=== PATIENT | female | born 1960 | race Caucasian/White ===

== ENCOUNTER 2018-01-13 12:04 | Observation (INO) | payer OTHER ==
[~2018-01-13] VITALS: Ht 177.8 cm; Wt 13.3 kg
[~2018-01-13 12:04] MED LIST: ACIPHEX20 MG PO; ASPIRIN81 M1 PO; ATIVAN; BENTYL20 MG PO; CLONIDINE HCL0.1 MG PO; DEPO-PROVERA; DEXILANT60 MG PO; EDARBYCLOR PO; LEVOTHYROXINE75 MCG PO; LORAZEPAM PO; LOSARTAN-HCTZ1 EACH PO; NORCO 7.5-3251 EACH PO; PANTOPRAZOLE SO40 MG PO; PRILOSEC OTC20 MG PO; SINGULAIR10 MG PO; VITAMIN D-32000 UNIT PO
[2018-01-13] MEDS ORDERED: DILTIAZEM HCL 100 ML IV STA (12:17)
[2018-01-13] MEDS ORDERED: DILTIAZEM HCL 5 MG/ML 5 ML VIAL IV STA ×2 (12:17→13:35)
[2018-01-13 12:28] LABS: BASOPHILS # (AUTO) 0.1 (0.0-0.1); BASOPHILS % 0.7 % (0.0-1.0); EOSINOPHILS # (AUTO) 0.2 (0.0-0.4); EOSINOPHILS % 2.6 % (0.0-6.0); HEMATOCRIT 43.4 % (34.2-44.1); HEMOGLOBIN 14.6 g/dL (12.0-16.0); LYMPHOCYTES # (AUTO) 2.1 (1.0-3.2); LYMPHOCYTES % 24.4 % (18.0-39.1); MEAN CORPUSCULAR HEMOGLOBIN 30.9 pg (28-32); MEAN CORPUSCULAR HGB CONC 33.6 g/dL (31-35); MEAN CORPUSCULAR VOLUME 91.8 fL (81-99); MONOCYTES % 12.2 % (4.4-11.3); NEUTROPHILS # (AUTO) 5.1 (2.1-6.9); NEUTROPHILS % 59.6 % (38.7-80.0); PLATELET COUNT 256 x10e3/uL (140-360); RED BLOOD COUNT 4.73 x10e6/uL (3.6-5.1); RED CELL DISTRIBUTION WIDTH 12.1 % (11.7-14.4)
[2018-01-13] MEDS ORDERED: SODIUM CHLORIDE 0.9% 250ML 250 ML ONE (12:28)
[2018-01-13] MEDS ORDERED: SODIUM CHLORIDE 0.9% 500ML 500 ML IV ONE (12:30)
[2018-01-13 12:33] LABS: INR 0.9; PROTHROMBIN TIME 11.4 seconds (11.9-14.5)
[2018-01-13 12:34] LABS: PARTIAL THROMBOPLASTIN TIME 32.4 seconds (23.8-35.5)
[2018-01-13 12:40] LABS: ALANINE AMINOTRANSFERASE 18 IU/L (0-55); ALBUMIN 3.6 g/dL (3.5-5.0); ALBUMIN/GLOBULIN RATIO 0.9 (0.8-2.0); ALKALINE PHOSPHATASE 101 IU/L (40-150); ANION GAP 12.8 mmol/L (8-16); BLOOD UREA NITROGEN 15 mg/dL (7-26); BUN/CREATININE RATIO 16 (6-25); CALCIUM 9.8 mg/dL (8.4-10.2); CARBON DIOXIDE 28 mmol/L (22-29); CHLORIDE 105 mmol/L (98-107); CREATINE KINASE 78 IU/L (29-168); CREATININE, SERUM 0.92 mg/dL (0.57-1.11); EST GLOMERULAR FILTRATION RATE > 60 ML/MIN (60-); GLUCOSE 99 mg/dL (74-118); POTASSIUM 3.8 mmol/L (3.5-5.1); SODIUM 142 mmol/L (136-145)
[2018-01-13] MEDS ORDERED: DILTIAZEM HCL IV SOLN 125 MG in SODIUM CHLORIDE 0.9% 100 ML IV SCH (12:45)
[2018-01-13 13:00] LABS: THYROID STIMULATING HORMONE 0.228 uIU/mL (0.350-4.940)
[2018-01-13] MEDS ORDERED: GABAPENTIN300 MG PO (13:10)
[2018-01-13] MEDS ORDERED: ATORVASTATIN CA10 MG PO (13:10)
[2018-01-13] MEDS ORDERED: METOPROLOL SUCC25 MG PO (13:10)
[2018-01-13] MEDS ORDERED: LEXAPRO10 MG PO (13:10)
[2018-01-13] MEDS ORDERED: ENOXAPARIN SODIUM INJ 100 MG/ML SYR SC STA (13:21)
[2018-01-13] MEDS ORDERED: SODIUM CHLORIDE FLUSH 10 ML SYR INJ PRN (13:30)
[2018-01-13] MEDS: DILTIAZEM HCL 30 MG TAB PO SCH ×2 (13:34→16:30)
--- NOTE | 2018-01-13 13:34 | Diagnostic Imaging Report ---
PROCEDURE: A single AP view of the chest. COMPARISON: Patients [facility], CT, CT ABDOMEN/PELVIS W, 09/17/2012, 4:35. INDICATIONS: ELEVATED HEART RATE. WEAKNESS FINDINGS: Lines/tubes: None. Lungs: The lungs are well inflated and clear. There is no evidence of pneumonia or pulmonary edema. Pleura: There is no pleural effusion or pneumothorax. Heart and mediastinum: The heart and the mediastinum are unremarkable. Bones: No acute bony abnormality. IMPRESSION: 1. No acute cardiopulmonary abnormalities. Haroon Seymour M.D. Dictated by: Haroon Seymour M.D. on 01/13/2018 at 13:36 Electronically approved by: Haroon Seymour M.D. on 01/13/2018 at 13:36
--- OUTSIDE RECORDS SUMMARY | 2018-01-13 14:31 | XMS REPORT ---
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 Allergies, Adverse Reactions, Alerts This patient has no known allergies or adverse reactions. Medications This patient has no known medications. Results Test Description Test Time Test Comments Text Results Atomic Results Result Comments CHEST SINGLE (PORTABLE) [place] [address] Patient Name: JENIFFER LECHUGA MR #: [id number] : 1960 Age/Sex: 57/F Req #: [id number] Adm Physician: Ordered by: OMAIRA QUILES MD Report #: [id number] Location: ER Room/Bed: Procedure: [id number] DX/CHEST SINGLE (PORTABLE) Exam Date: 01/13/18 Exam Time: 1230 REPORT STATUS: Signed PROCEDURE: A single AP view of the chest. COMPARISON: [facility], CT, CT ABDOMEN/PELVIS W, 09/17/2012, 4:35. INDICATIONS: ELEVATED HEART RATE. WEAKNESS FINDINGS: Lines/tubes: None. Lungs: The lungs are well inflated and clear. There is no evidence of pneumonia or pulmonary edema. Pleura: There is no pleural effusion or pneumothorax. Heart and mediastinum: The heart and the mediastinum are unremarkable. Bones: No acute bony abnormality. IMPRESSION: 1. No acute cardiopulmonary abnormalities. Angela Perez M.D. Dictated by : Angela Perez M.D. on 01/13/2018 at 13:36 Electronically approved by: Angela Perez M.D. on 01/13/2018 at 13:36 Dictated By : ANGELA PEREZ MD [id number] Transcribed By: EZRA on 01/13/18 1336 COPY TO: OMAIRA QUILES MD
[2018-01-13 15:00] VITALS: BP 104/64
[2018-01-13 16:08] LABS: FREE THYROXINE INDEX 2.7864 (1.4-3.8)
--- NOTE | 2018-01-13 16:24 | History and Physical ---
CHIEF COMPLAINT: The patient comes in with a rapid heart rate and palpitations. HISTORY OF PRESENTING ILLNESS: This is Ms. Juan Nava, a 57-year-old lady with a history of low back pain, hypothyroidism, anxiety, was in her usual state of health until a night before the admission the patient started to have some palpitation and was also having a small amount of heartburn and dull headache, and the patient presented to the primary care office and the patient was found to have AFib with rapid ventricular response. PAST MEDICAL HISTORY: History of hypertension, history of asthma, history of hypothyroidism, history of anxiety, history of lumbar disease, diskopathy and history of reflux esophagitis. MEDICINES SHE TAKES AT HOME 1. Levothyroxine 150. 2. Losartan and hydrochlorothiazide 50 with 12.5. 3. Atorvastatin 10 mg. 4. Lexapro 10 mg. 5. Gabapentin 300 mg 3 capsules orally once a day. 6. Dexilant 60 mg once a day. 7. Montelukast 10 mg. 8. Aspirin 81 mg. 9. Metoprolol ER 25 mg once a day. SOCIAL HISTORY: History of smoking in the past. No ETOH. No IV drug abuse right now. REVIEW OF SYSTEMS: Negative for chest pain. Positive for some shortness of breath . No nausea, vomiting, diarrhea. No constipation. No rectal bleeding. No hematochezia, no hematemesis. No diplopia, no blurry vision and no focal deficits on history. PHYSICAL EXAMINATION VITAL SIGNS: Temperature is not noted. Pulse was 84 and climbed up to 132, along the way was given diltiazem, came down to 56. Blood pressure is 116/72. HEENT: Normocephalic, atraumatic. Pupils react to light and accommodation. CARDIOVASCULAR: S1 and S2 normal. Right now the patient is in regular rate and rhythm. ABDOMEN: Nontender, nondistended. EXTREMITIES: No clubbing, no cyanosis, no edema. ASSESSMENT 1. Paroxysmal atrial fibrillation. 2. Hypothyroidism. 3. Hypertension. 4. Atrial fibrillation with rapid ventricular response. PLAN: The patient will get an echocardiogram. Cardiac consult has been done. Will start the patient on Xarelto 15 mg twice a day and will possibly send the patient tomorrow home. Thyroid medication has been reduced to 150 mcg. Patient's laboratory values were essentially normal except for the hyperthyroid overcorrection that was seen. TSH was 0.08. BNP was 273. We are going to order an echocardiogram. Further recommendations on clinical course. For further information, look in the chart. Job#: [id number]
[2018-01-13 16:44] VITALS: BP 104/64
[2018-01-13] MEDS ORDERED: RIVAROXABAN 20 MG TABLET PO SCH (17:00)
[2018-01-13] MEDS: HYDROCODONE/APAP 7.5MG-325MG 1 EA TAB PO SCH ×2 (18:00→20:35)
[2018-01-13 20:00] VITALS: BP 110/68
[2018-01-13] MEDS ORDERED: ASPIRIN 81 MG CHEW TAB PO SCH (21:00)
[2018-01-13] MEDS ORDERED: LORAZEPAM 1 MG TAB PO SCH (21:00)
[2018-01-13] MEDS ORDERED: NON-FORMULARY MEDICATION (Aspirin 81 MG) PO SCH (21:00)
[2018-01-13] MEDS ORDERED: ATORVASTATIN 10 MG TAB PO SCH (21:00)
[2018-01-13 21:47] LABS: CREATINE KINASE 55 IU/L (29-168)
[2018-01-14] VITALS: BP 111/73
[2018-01-14] MEDS: HYDROCODONE/APAP 7.5MG-325MG 1 EA TAB PO SCH ×3 (01:49→09:24)
[2018-01-14 04:00] VITALS: BP 101/60
[2018-01-14] MEDS ORDERED: LEVOTHYROXINE SODIUM 125 MCG TAB PO SCH (06:00)
[2018-01-14 08:05] VITALS: BP 104/57
[2018-01-14 08:08] LABS: CREATINE KINASE 45 IU/L (29-168)
[2018-01-14] MEDS ORDERED: METOPROLOL SUCCINATE 25 MG TAB XL PO SCH ×3 (09:00→10:00)
[2018-01-14] MEDS ORDERED: ESCITALOPRAM OXALATE 10 MG TAB PO SCH (09:00)
[2018-01-14] MEDS ORDERED: MONTELUKAST SODIUM 10 MG TAB PO SCH (09:00)
[2018-01-14] MEDS ORDERED: GABAPENTIN 300 MG CAP PO SCH (09:00)
[2018-01-14] MEDS ORDERED: PANTOPRAZOLE SOD 40 MG TABEC PO SCH (09:00)
[2018-01-14] MEDS ORDERED: LEVOTHYROXINE SODIUM 75 MCG TAB PO SCH ×2 (09:00)
[2018-01-14 09:47] VITALS: BP 104/57
[2018-01-15] MEDS ORDERED: METOPROLOL SUCCINATE 25 MG TAB XL PO SCH (09:00)
== END 2018-01-14 10:33 | disposition home or self-care (01) ==
LOC: ER 12:04 → IMCU 14:28
PROVIDERS: ADMIT Family Medicine; ATTEND Family Medicine
DX: I48.0 Paroxysmal atrial fibrillation (principal); I10 Essential (primary) hypertension; E03.9 Hypothyroidism, unspecified; K21.9 Gastro-esophageal reflux disease without esophagitis; F41.9 Anxiety disorder, unspecified; Z79.84 Long term (current) use of oral hypoglycemic drugs; M54.5 Low back pain
CPT/HCPCS: 36415 ×2; 71045; 80053; 82550 ×2; 82553 ×2; 83880; 84436; 84443; 84479; 84484 ×2; 85025; 85379; 85610; 85730; 93005; 93306; 99284; G0378 ×2; J1650; J7050 ×3

== ENCOUNTER → 2019-02-22 | Day surgery (SDC) | payer OTHER ==
[~2019-02-22] MED LIST changes: +ATORVASTATIN CA10 MG PO; +ATORVASTATIN PO; +DEXILANT PO; +ESCITALOPRAM PO; +FENTANYL CITRATE/PF 100MCG/2 ML INJ ONE; +GABAPENTIN PO; +GABAPENTIN300 MG PO; +GLUCAGON FOR INJ 1 MG VIAL ONE; +LEVOTHYROXINE PO; +LEXAPRO10 MG PO; +LIDOCAINE HCL 2% LOCAL INJ 5 ML SDV VIAL INJ ONE; +LOSARTAN PO; +MELATONIN PO; +METOPROLOL PO; +METOPROLOL SUCC25 MG PO; +METOPROLOL TART25 MG PO; +MIDAZOLAM HCL 2 MG/2 ML VIAL ONE; +MONTELUKAST PO; +PROPOFOL IV EMULSION 10 MG/ML 50 ML VIAL ONE; +VITAMIN D PO; +XARELTO PO
--- OUTSIDE RECORDS SUMMARY | 2019-02-22 05:56 | XMS REPORT | Continuity of Care Document ---
Author Author [facility] Interface Address Unknown Phone Unavailable Problems Problem Status Onset Date Classification Date Reported Comments Source Encounter for screening mammogram for malignant neoplasm of breast 04/04/2018 10/15/2018 SHERON Ferrari M54.16 - "RADICULOPATHY, LUMBAR REGION" Active 08/24/2016 [facility] [place] Obstructed internal hernia Active 07/12/2015 Problem 01/14/2018 [facility] SBO Active 07/12/2015 Problem 01/14/2018 [facility] SBO Active 07/24/2014 [facility] Acute asthma Resolved Problem 10/15/2018 SHERON Ferrari,[facility] Adult hypothyroidism Resolved Problem 10/15/2018 SHERON Ferrari,[facility] GERD (<span ID="[id number]</span>) Resolved Problem 10/15/2018 SHERON Ferrari,[facility] HTN (<span ID="[id number]">Confirmed</span>) Resolved Problem 10/15/2018 SHERON Ferrari,[facility] Obesity Active Problem 10/15/2018 SHERON Ferrari INTESTINAL OBSTRUCT NOS Active [facility] Medications Medication Details Route Status Patient Instructions Ordering Provider Order Date Source Dicyclomine Hcl (Bentyl) 20 Mg Tablet, 20 Mg Oral Daily Active 07/13/2015 [facility] Omeprazole Magnesium (Prilosec Otc) 20 Mg Tablet., 1 Each Oral Daily Active 07/13/2015 [facility] Pantoprazole Sodium (Protonix) 40 Mg Tablet., 40 Mg Oral Daily Active 07/13/2015 [facility] Dexilant 60 mg, Route: PO, Drug form: DRC, Daily, Dosing Weight 90.909, kg, Start date: 07/26/14 9:00:00, Duration: 30 day, Stop date: 08/24/14 9:00:00 No Longer Active 07/26/2014 [facility] aspirin 81 mg, 1 tab, Route: PO, Drug form: CHEWTAB, Daily, Dosing Weight 90.909, kg, Start date: 07/26/14 9:00:00, Duration: 30 day, Stop date: 08/24/14 9:00:00Notes: Take with food. No Longer Active 07/26/2014 [facility] Singulair 10 mg, 1 tab, Route: PO, Drug form: TAB, Bedtime, Dosing Weight 90.909, kg, Start date: 07/25/14 21:00:00, Duration: 30 day, Stop date: 08/23/14 21:00:00Notes: (Same as:Singulair) Inactive 07/26/2014 [facility] Protonix 40 mg, 1 tab, Route: PO, Drug form: ECTAB, Before Dinner, Start date: 07/25/14 16:30:00, Duration: 30 day, Stop date: 08/23/14 16:30:00Notes: Tablet should not be chewed or crushed. (Same as: Protonix) Inactive 07/25/2014 [facility] Alprazolam 1 MG Oral Tablet [Xanax] 1 mg, 1 tab, Route: PO, Drug form: TAB, TID, Dosing Weight 90.909, kg, PRN as needed for anxiety, Start date: 07/25/14 11:09:00, Stop date: 08/24/14 11:08:00Notes: With food or milk (Same as: Xanax) Inactive 07/25/2014 [facility] pneumococcal capsular polysaccharide type 1 vaccine / pneumococcal capsular polysaccharide type 10A vaccine / pneumococcal capsular polysaccharide type 11A vaccine / pneumococcal capsular polysaccharide type 12F vaccine / pneumococcal capsular polysacchar 0.5 ml, Route: IM, Drug Form: INJ, Daily, Start date: 07/25/14 9:00:00, Duration: 1 doses or times, Stop date: 07/25/14 9:00:00Notes: (Same as: Pneumovax 23) Refrigerate Inactive 07/25/2014 [facility] Influenza Virus Vaccine, Inactivated Z-Wufyvswx-54 (H3N2)-like virus ([id number] [facility] [place]175[place] strain / Influenza Virus Vaccine, Inactivated G-[id number], IVR-148 (H1N1) strain / Influenza Virus Vaccine, Inactivated, D-Ltizgzj-6-lik 0.5 ml, Route: IM, Drug Form: SUSP, Daily, Start date: 07/25/14 9:00:00, Duration: 1 doses or times, Stop date: 07/25/14 9:00:00Notes: (Same as: Fluzone Quadrivalent) Inactive 07/25/2014 [facility] Losartan 50 mg, 1 tab, Route: PO, Drug form: TAB, Daily, Dosing Weight 90.909, kg, Start date: 07/25/14 9:00:00, Duration: 30 day, Stop date: 08/23/14 9:00:00Notes: (Same as: Cozaar) Inactive 07/25/2014 [facility] Thyroxine 0.15 mg, 1 tab, Route: PO, Drug form: TAB, [id number], Dosing Weight 90.909, kg, Start date: 07/25/14 6:30:00, Duration: 30 day, Stop date: 08/23/14 6:30:00Notes: Take 1 hour before or 2 hours after meal; Enteral feeds may interefere with the absorption of this medication. (Same as: Levothroid) Inactive 07/25/2014 [facility] Atropine 0.5 mg, 5 mL, Route: IV, Drug form: INJ, ONCE, Dosing Weight 90.909, kg, PRN Bradycardia, Start date: 07/24/14 20:21:00, symptomatic bradycardia with heart rate No Longer Active 07/25/2014 [facility] Nitroglycerin 0.4 MG Sublingual Tablet 0.4 mg, 1 tab, Route: SL, Drug form: TAB, Q5Min, Dosing Weight 90.909, kg, PRN Chest Pain, Start date: 07/24/14 20:21:00, Duration: 30 day, Stop date: 08/23/14 20:20:00Notes: (Same as:Nitroquick, Nitrostat) "Do Not Crush" Sublingual tablet No Longer Active 07/25/2014 [facility] Cipro 500 mg, 10 mL, Route: NG, Drug form: SUSP, [id number], Dosing Weight 90.909, kg, Start date: 07/24/14 17:00:00, Duration: 30 day, Stop date: 08/23/14 5:00:00Notes: Shake well - Take 1hr before or 2hr after antacids, dairy & minerals - On empty stomach - May interfere w/enteral feedings. No Longer Active 07/24/2014 [facility] Flagyl 500 mg, 100 mL, Route: IVPB, Drug form: INJ, [id number], Dosing Weight 90.909, kg, Start date: 07/24/14 17:00:00, Duration: 30 day, Stop date: 08/23/14 9:00:00Notes: (Same as: Flagyl) Avoid alcohol. No Longer Active 07/24/2014 [facility] normal saline 0.9% IV 1,000 mL 1,000 mL, Rate: 75 ml/hr, Infuse over: 13.3 hr, Route: IV, Dosing Weight 90.909 kg, Total Volume: 1,000, Start date: 07/24/14 16:34:00, Duration: 30 day, Stop date: 08/23/14 16:33:00 No Longer Active 07/24/2014 [facility] montelukast 10 MG Oral Tablet [Singulair] 10 mg=1 tab, PO, Bedtime, # 30 tab, 0 Refill(s) On Hold 07/24/2014 [facility] losartan 50 mg oral tablet 50 mg=1 tab, PO, Daily, # 30 tab, 0 Refill(s) On Hold 07/24/2014 [facility] dexlansoprazole 60 MG Enteric Coated Capsule [Dexilant] 60 mg=1 cap, Daily, 0 Refill(s) On Hold 07/24/2014 [facility] dicyclomine 20 mg oral tablet 20 mg=1 tab, PO, QID, # 28 tab, 0 Refill(s) On Hold 07/24/2014 [facility] Alprazolam 1 MG Oral Tablet [Xanax] 1 mg=1 tab, PO, TID, Anxiety, 0 Refill(s) On Hold 07/24/2014 [facility] aspirin 81 mg, Daily, 0 Refill(s) On Hold 07/24/2014 [facility] Thyroxine 0.15 mg, PO, Daily, 0 Refill(s) On Hold 07/24/2014 [facility] Ativan , Bedtime Active 09/17/2012 [facility] Clonidine Hcl 0.1 Mg Tablet, 0.1 Mg Oral Bedtime Active 09/17/2012 [facility] Depo-Provera , Active 09/17/2012 [facility] Edarbyclor , 25 Mg Oral Daily Active 09/17/2012 [facility] Rabeprazole Sodium (Aciphex) 20 Mg Tablet.dr, 20 Mg Oral Daily Active 09/17/2012 [facility] Depo-Provera , Active 09/08/2012 [facility] Aspirin 81 Mg Tablet Bedtime Active [facility] Atorvastatin Calcium 10 Mg Tablet Today At 9:00PM Active [facility] Cholecalciferol (Vitamin D3) (Vitamin D-3) 2,000 Unit Capsule Bedtime Active [facility] Dexlansoprazole (Dexilant) 60 Mg Cap. Daily Active THERAPEUTIC INTERCHANGE WITH PROTONIX PER [facility] Escitalopram Oxalate (Lexapro) 10 Mg Tablet Daily Active [facility] Gabapentin 300 Mg Capsule Daily Active [facility] Hydrocodone Bit/Acetaminophen ([place]ield 7.5-325 Tablet) 1 Each Tablet Every 4 Hours Active [facility] Levothyroxine Sodium 75 Mcg Tablet Daily Active [facility] Lorazepam Bedtime Active [facility] Losartan/Hydrochlorothiazide (Losartan-Hctz 50-12.5 Mg Tab) 1 Each Tablet Daily Active [facility] Metoprolol Succinate 25 Mg Tab.er.24h Daily Active [facility] Montelukast Sodium (Singulair) 10 Mg Tablet Daily Active [facility] Allergies, Adverse Reactions, Alerts Substance Category Reaction Severity Reaction type Status Date Reported Comments Source Methylprednisolone THROAT CLOSES UP AND HIVES Severe Allergy to Substance Active 07/13/2015 [facility] Depo-Medrol Assertion Drug allergy Active [facility]ER[facility] Immunizations Immunization Date Given Site Status Last Updated Comments Source pneumococcal 23-valent vaccine 07/25/2014 Right deltoid completed Eugenio [facility] [place] influenza virus vaccine, inactivated 07/25/2014 Left deltoid completed Eugenio [facility] [place] Results Order Name Results Value Reference Range Date Interpretation Comments Source Breast Mammo Scrn ALLAN incl CAD MA Breast Mammo Scrn ALLAN incl CAD MA BILATERAL DIGITAL SCREENING MAMMOGRAM WITH CAD: 03/28/2018 CLINICAL: Routine/Screening. Current study was evaluated with a Computer Aided Detection (CAD) system. COMPARISON:Comparison is made to exams dated: 09/01/2012 mammogram, 07/02/2011 mammogram, 06/17/2011 mammogram, and 07/26/2008 mammogram - [facility]. TECHNIQUE: Mammographic views were obtained using digital acquisition. Current study was also evaluated with a Computer Aided Detection (CAD) system. FINDINGS: There are scattered fibroglandular densities in both breasts. No significant masses, calcifications, or other findings are seen in either breast. There has been no significant interval change. IMPRESSION: NEGATIVE RECOMMENDATION:There is no mammographic evidence of malignancy. A 1 year screening mammogram is recommended.(03/29/2019) This exam was interpreted at [id number] at [facility] [place]. Professional services are provided by the [facility]. Shira Limon M.D. sm/penrad:03/28/2018 15:55:37 Track Laminating Machine Tender(s): Helen Veliz RT(R)(M), [facility] letter sent: BI-RADS 1/2 Mammogram BI-RADS: 1 Negative 03/28/2018 - - Read by: Shira Limon MD Dictated Date/time: 03/28/18 15:55 Electronically Signed by: Shira Limon MD 03/28/18 15:55 FINAL REPORT [facility]ER[facility] Serum or plasma creatine kinase MB measurement (mass/volume) Serum or plasma creatine kinase MB measurement (mass/volume) 0.80 0 - 5.0 01/14/2018 [facility] Serum or plasma creatine kinase measurement (enzymatic activity/volume) Serum or plasma creatine kinase measurement (enzymatic activity/volume) 45 29 - 168 01/14/2018 [facility] Troponin I measurement by highly sensitive enzyme immunoassay Troponin I measurement by highly sensitive enzyme immunoassay null 0 - 0.300 01/14/2018 [facility] Activated partial thromboplastin time (aPTT) in platelet poor plasma bycoagulation assay Activated partial thromboplastin time (aPTT) in platelet poor plasma bycoagulation assay 32.4 23.8 - 35.5 01/13/2018 [facility] Automated blood basophil count (count/volume) Automated blood basophil count (count/volume) 0.1 0.0 - 0.1 01/13/2018 [facility] Automated blood basophil count as percentage of total leukocytes Automated blood basophil count as percentage of total leukocytes 0.7 0.0 - 1.0 01/13/2018 [facility] Automated blood eosinophil count Automated blood eosinophil count 0.2 0.0 - 0.4 01/13/2018 [facility] Automated blood eosinophil count as percentage of total leukocytes Automated blood eosinophil count as percentage of total leukocytes 2.6 0.0 - 6.0 01/13/2018 [facility] Automated blood hematocrit (volume fraction) Automated blood hematocrit (volume fraction) 43.4 34.2 - 44.1 01/13/2018 [facility] Automated blood lymphocyte count as percentage ot total leukocytes Automated blood lymphocyte count as percentage ot total leukocytes 24.4 18.0 - 39.1 01/13/2018 [facility] Automated blood monocyte count as percentage of total leukocytes Automated blood monocyte count as percentage of total leukocytes 12.2 4.4 - 11.3 01/13/2018 [facility] Automated blood neutrophil count Automated blood neutrophil count 5.1 2.1 - 6.9 01/13/2018 [facility] Automated blood platelet count (count/volume) Automated blood platelet count (count/volume) 256 140 - 360 01/13/2018 [facility] Automated blood segmented neutrophil count as percentage of total leukocytes Automated blood segmented neutrophil count as percentage of total leukocytes 59.6 38.7 - 80.0 01/13/2018 [facility] Automated erythrocyte mean corpuscular hemoglobin (mass per erythrocyte) Automated erythrocyte mean corpuscular hemoglobin (mass per erythrocyte) 30.9 28 - 32 01/13/2018 [facility] Automated erythrocyte mean corpuscular hemoglobin concentration measurement (mass/volume) Automated erythrocyte mean corpuscular hemoglobin concentration measurement (mass/volume) 33.6 31 - 35 01/13/2018 [facility] Automated erythrocyte mean corpuscular volume Automated erythrocyte mean corpuscular volume 91.8 81 - 99 01/13/2018 [facility] Blood erythrocytes automated count (number/volume) Blood erythrocytes automated count (number/volume) 4.73 3.6 - 5.1 01/13/2018 [facility] Blood hemoglobin measurement (moles/volume) Blood hemoglobin measurement (moles/volume) 14.6 12.0 - 16.0 01/13/2018 [facility] Blood leukocytes automated count (number/volume) Blood leukocytes automated count (number/volume) 8.55 4.8 - 10.8 01/13/2018 [facility] Blood lymphocytes count (number/volume) Blood lymphocytes count (number/volume) 2.1 1.0 - 3.2 01/13/2018 [facility] Blood monocytes automated count (number/volume) Blood monocytes automated count (number/volume) 1.0 0.2 - 0.8 01/13/2018 [facility] Estimated glomerular filtration rate (GFR) determination Estimated glomerular filtration rate (GFR) determination null 60 01/13/2018 [facility] Fibrin D-dimer DDU measurement in platelet poor plasma (mass/volume) Fibrin D-dimer DDU measurement in platelet poor plasma (mass/volume) 0.49 0.00 - 0.45 01/13/2018 [facility] Free thyroxine index Free thyroxine index 2.7864 1.4 - 3.8 01/13/2018 [facility] Glucose measurement Glucose measurement 99 74 - 118 01/13/2018 [facility] INR in Platelet poor plasma by Coagulation assay INR in Platelet poor plasma by Coagulation assay 0.90 01/13/2018 [facility] Plasma globulin measurement (mass/volume) Plasma globulin measurement (mass/volume) 3.9 2.3 - 3.5 01/13/2018 [facility] Prothrombin time (PT) in platelet poor plasma by coagulation assay Prothrombin time (PT) in platelet poor plasma by coagulation assay 11.4 11.9 - 14.5 01/13/2018 [facility] Serum or plasma alanine aminotransferase measurement (enzymatic activity/volume) Serum or plasma alanine aminotransferase measurement (enzymatic activity/volume) 18 0 - 55 01/13/2018 [facility] Serum or plasma albumin measurement (mass/volume) Serum or plasma albumin measurement (mass/volume) 3.6 3.5 - 5.0 01/13/2018 [facility] Serum or plasma albumin/globulin mass ratio Serum or plasma albumin/globulin mass ratio 0.9 0.8 - 2.0 01/13/2018 [facility] Serum or plasma alkaline phosphatase measurement (enzymatic activity/volume) Serum or plasma alkaline phosphatase measurement (enzymatic activity/volume) 101 40 - 150 01/13/2018 [facility] Serum or plasma anion gap Serum or plasma anion gap 12.8 8 - 16 01/13/2018 [facility] Serum or plasma calcium measurement (mass/volume) Serum or plasma calcium measurement (mass/volume) 9.8 8.4 - 10.2 01/13/2018 [facility] Serum or plasma carbon dioxide, total measurement (moles/volume) Serum or plasma carbon dioxide, total measurement (moles/volume) 28 22 - 29 01/13/2018 [facility] Serum or plasma chloride measurement (moles/volume) Serum or plasma chloride measurement (moles/volume) 105 98 - 107 01/13/2018 [facility] Serum or plasma creatinine measurement (mass/volume) Serum or plasma creatinine measurement (mass/volume) 0.92 0.57 - 1.11 01/13/2018 [facility] Serum or plasma potassium measurement (moles/volume) Serum or plasma potassium measurement (moles/volume) 3.8 3.5 - 5.1 01/13/2018 [facility] Serum or plasma protein measurement (mass/volume) Serum or plasma protein measurement (mass/volume) 7.5 6.5 - 8.1 01/13/2018 [facility] Serum or plasma sodium measurement (moles/volume) Serum or plasma sodium measurement (moles/volume) 142 136 - 145 01/13/2018 [facility] Serum or plasma thyrotropin measurement by detection limit <=0.005 miu/l (units/volume) Serum or plasma thyrotropin measurement by detection limit <=0.005 miu/l (units/volume) 0.228 0.350 - 4.940 01/13/2018 [facility] Serum or plasma thyroxine (T4) measurement (mass/volume) Serum or plasma thyroxine (T4) measurement (mass/volume) 11.04 4.5 - 10.9 01/13/2018 [facility] Serum or plasma total bilirubin measurement (mass/volume) Serum or plasma total bilirubin measurement (mass/volume) 0.3 0.2 - 1.2 01/13/2018 [facility] Serum or plasma triiodothyronine resin uptake (T3RU) Serum or plasma triiodothyronine resin uptake (T3RU) 25.24 22.5 - 37.0 01/13/2018 [facility] Serum or plasma urea nitrogen measurement (mass/volume) Serum or plasma urea nitrogen measurement (mass/volume) 15 7 - 26 01/13/2018 [facility] Serum or plasma urea nitrogen/creatinine mass ratio Serum or plasma urea nitrogen/creatinine mass ratio 16 6 - 25 01/13/2018 [facility] Red Cell Distribution Width 12.1 11.7 - 14.4 01/13/2018 [facility] IM GRANULOCYTES % 0.5 0.0 - 1.0 01/13/2018 [facility] Absolute Immature Granulocyte (auto 0.04 0 - 0.1 01/13/2018 [facility] Aspartate Amino Transf (AST/SGOT) 14 5 - 34 01/13/2018 [facility] B-Type Natriuretic Peptide 273.1 0 - 100 01/13/2018 [facility] Spine lumbar w/wo contrast MRI Spine lumbar w/wo contrast MRI MRI LUMBAR SPINE WITHOUT AND WITH CONTRAST TECHNIQUE: Sagittal T1, sagittal T2 with fat saturation, axial T1 and axial T2 images were obtained. Intravenous gadolinium was given. COMPARISON: No prior exam. FINDINGS: The paravertebral soft tissues are normal. The conus medullaris terminates at the T12-L1 level. Mild levoscoliosis of the lumbar spine is present. Congenital shortened lumbar pedicles are seen. L2-L5 laminectomies are seen. No pseudomeningocele or arachnoiditis is identified. T12-L1: Unremarkable. L1-L2: Unremarkable. L2-L3: 4.7 mm disc bulge is present with moderate central canal stenosis. Mild bilateral foraminal stenosis is present due to disc bulge encroachment with mild mass effect on the left L2 exiting nerve root. L3-L4: 3.5 mm grade 1 retrolisthesis with 5.6 mm posterior disc osteophyte complex, with mild central canal stenosis. The lateral recesses are stenotic. Severe bilateral foraminal stenosis is present due to disc osteophyte complex encroachment. Prominent right foraminal and extraforaminal disc osteophyte complex is present. Mild L3 and L4 marrow edema is present with mild enhancement. Mild enhancement of the disc is also present. No paraspinal or epidural cellulitis or fluid collection is seen. L4-L5: Moderate bilateral foraminal stenosis due to disc osteophyte complex encroachment. No central canal stenosis due to the laminectomy. L5-S1: 2.8 mm disc bulge. Severe left foraminal stenosis due to foraminal and extraforaminal osteophytes. No thecal sac stenosis. IMPRESSION: 1. Multilevel disc degenerative disease and spondylosis. Congenital short lumbar pedicles. 2. L2-L5 laminectomies. No pseudomeningocele or arachnoiditis. 3. L2-L3 moderate central canal stenosis. 4. L3-L4 significant degenerative changes with severe bilateral foraminal stenosis and mild central canal stenosis. L3 and L4 marrow edema likely reactive Modic type I marrow change rather than osteomyelitis and discitis. No cellulitis. Clinical correlation recommended. 5. L4-L5 moderate bilateral foraminal stenosis. L5-S1 severe left foraminal stenosis. 09/13/2016 - - Read by: Geovanny Olivas MD Dictated Date/time: 09/13/16 16:41 Electronically Signed by: Geovanny Olivas MD 09/13/16 17:16 FINAL REPORT [facility] Spine cervical wo contrast MRI Spine cervical wo contrast MRI EXAM: MRI CERVICAL SPINE WITHOUT CONTRAST DATE: 09/13/2016 2:37 PM TEST ENGINEERING INTERN TECHNIQUE: Multiplanar, multisequence MRI cervical spine without IV contrast COMPARISON: Unavailable FINDINGS: Cervical vertebral bodies have normal height, shape and alignment. The lordosis is straightened. No worrisome marrow signal abnormality is identified. Cerebellar tonsils are above foramen magnum. Cervical cord signal is normal and homogenous. Paravertebral soft tissues are within normal limits. Disc levels, spinal canal, neural foramina: Craniocervical junction: No stenosis C1-C2: No subluxation, ligamentous pannus formation, or stenosis C2-C3: Intervertebral disc height and signal are maintained. Posterior elements are normal.There is no stenosis. C3-C4: Intervertebral disc height and signal are maintained. Right facets are mildly enlarged. Central canal measures 14 mm. Neural foramina are patent.. C4-C5: Intervertebral discs dehydrated without height loss. There is a small right foraminal zone osteophyte complex. There is right greater than left facet hypertrophy. Central canal measures 14 mm. Neural foramina are patent. C5-C6: Loss of intervertebral disc height with circumferential disc osteophyte complex and radial annular fissuring. There is mild facet and uncinate hypertrophy. Central canal measures 9 mm, and there is slight flattening of the ventral cord surface. There is no cord signal abnormality. There is moderate narrowing of the right neural foramen. C6-C7: Loss of intervertebral disc height and signal with circumferential disc osteophyte complex. There is left greater than right facet and uncinate hypertrophy. Central canal measures 8 mm, and is slight flattening the ventral cord surface, but there is no cord signal abnormality. There is [id number]-[id number] narrowing of the left neural foramen. C7-T1: Intervertebral disc height and signal are maintained. Facets are mildly enlarged. Central canal measures 10 mm. Neural foramina are patent. IMPRESSION: 1. Mild C5-C6 and C6-C7 spinal stenosis and ventral cord flattening. There is no evidence of compressive myelopathy 2. Moderate right C5-C6 and left C6-C7 neural foramen narrowing. 09/13/2016 - - Read by: Josh Ward MD Dictated Date/time: 09/13/16 16:37 Electronically Signed by: Josh aWrd MD 09/13/16 16:40 FINAL REPORT [facility] CHEM PANEL Glucose Lvl 106 mg/dL 70 - 99 07/25/2014 2Interpretive Data: Adult reference range values reflect the clinical guidelines of the [place] [employer]. [facility] CHEM PANEL Creatinine Lvl 1.0 mg/dL 0.5 - 1.4 07/25/2014 [facility] CHEM PANEL BUN 10 mg/dL 7 - 22 07/25/2014 [facility] CHEM PANEL Potassium Lvl 4.3 meq/L 3.5 - 5.1 07/25/2014 [facility] CHEM PANEL Sodium Lvl 143 meq/L 135 - 145 07/25/2014 [facility] CHEM PANEL CO2 30 meq/L 24 - 32 07/25/2014 [facility] CHEM PANEL Chloride Lvl 109 meq/L 95 - 109 07/25/2014 [facility] CHEM PANEL Calcium Lvl 8.2 mg/dL 8.5 - 10.5 07/25/2014 [facility] CHEM PANEL AGAP 8.3 meq/L 10.0 - 20.0 07/25/2014 [facility] CHEM PANEL eGFR 65 mL/min/1.73m2 07/25/2014 1Result Comment: The eGFR is calculated using the CKD-EPI formula. In most young, healthy individuals the eGFR will be >90 mL/min/1.73m2. The eGFR declines with age. An eGFR of 60-89 may be normal in some populations, particularly the elderly, for whom the CKD-EPI formula has not been extensively validated. Use of the eGFR is not recommended in the following populations: Individuals with unstable creatinine concentrations, including patients and those with serious co-morbid conditions. Patients with extremes in muscle mass or diet. The data above are obtained from the National Kidney Disease Education Program (NKDEP) which additionally recommends that when the eGFR is used in patients with extremes of body mass index for purposes of drug dosing, the eGFR should be multiplied by the estimated BMI. [facility] Abdomen 2 views Abdomen 2 views ABDOMEN 2 VIEWS: The lateral aspects of the abdomen are coned off. There is contrast in the right colon. The gas pattern is normal. There is no evidence of pneumoperitoneum. Surgical clips in the right upper quadrant are noted. Degenerative changes in the lumbar spine are seen without acute osseous abnormalities. IMPRESSION: No acute radiographic abnormality in the abdomen. SL:13 07/25/2014 - - Read by: Richar Ramos MD Dictated Date/time: 07/25/14 07:41 Electronically Signed by: Richar Ramos MD 07/25/14 07:43 FINAL REPORT [facility] CARDIAC ENZYMES Troponin-I null 0.00 - 0.40 07/24/2014 [facility] HEMATOLOGY RDW 13.6 % 11.5 - 14.5 07/24/2014 [facility] HEMATOLOGY MCHC 32.7 g/dL 32.0 - 36.0 07/24/2014 [facility] HEMATOLOGY Hct 36.0 % 36.0 - 48.0 07/24/2014 [facility] HEMATOLOGY Platelet 266 K/CMM 133 - 450 07/24/2014 [facility] MCH 28.5 pg 27.0 - 31.0 07/24/2014 [facility] HEMATOLOGY MCV 87.2 fL 80.0 - 98.0 07/24/2014 [facility] HEMATOLOGY MPV 7.3 fL 7.4 - 10.4 07/24/2014 [facility] HEMATOLOGY Hgb 11.8 g/dL 12.0 - 16.0 07/24/2014 [facility] HEMATOLOGY RBC 4.13 M/CMM 4.20 - 5.40 07/24/2014 [facility] HEMATOLOGY WBC 8.8 K/CMM 3.7 - 10.4 07/24/2014 [facility] Vital Signs Vital Sign Value Date Comments Source Diastolic (mm Hg) 72 07/25/2014 [facility] Systolic (mm Hg) 121 07/25/2014 [facility] Heart Rate 63 07/25/2014 [facility] Temperature Oral (F) 98.0 F 07/25/2014 [facility] Respitory Rate 16 07/25/2014 [facility] Diastolic (mm Hg) 71 07/25/2014 [facility] Systolic (mm Hg) 116 07/25/2014 [facility] Heart Rate 74 07/25/2014 [facility] Temperature Oral (F) 97.9 F 07/25/2014 [facility] Temperature Oral (F) 98.1 F 07/25/2014 [facility] Heart Rate 66 07/25/2014 [facility] Systolic (mm Hg) 93 07/25/2014 [facility] Respitory Rate 16 07/25/2014 [facility] Diastolic (mm Hg) 76 07/25/2014 [facility] Respitory Rate 16 07/25/2014 [facility] Height 177.8 cm 07/24/2014 [facility] Weight 90.909 07/24/2014 [facility] BMI Calculated 28.76 07/24/2014 [facility] Encounters Location Location Details Encounter Type Encounter Number Reason For Visit Attending Provider ADM Date DC Date Status Source [facility] Inpatient [id number] Darielmariuszbritt Barragan 07/24/2014 07/25/2014 [facility] [place] [facility] [id number] Jodie Cotto 09/13/2016 09/14/2016 [facility] [place] [facility] [id number] LANI IBARRA 01/19/2017 Active [facility] Outpatient [id number] GABO NICOLAS 01/19/2017 Active [facility] Outpatient [id number] GABO NICOLAS 03/02/2017 Active [facility] Discharged Inpatient (obs) [id number] LUCIANA CEDENO MD 01/13/2018 01/14/2018 [facility] [place] [facility] [id number] Dylon Hummel 03/28/2018 03/29/2018 [facility] [place] Procedures Procedure Code Date Perfomer Comments Source Cholecystectomy [id number] 09/06/2012 [facility] [place] Cholecystectomy [id number] 09/06/2012 [facility] Diskectomy [id number] 10/07/2001 [facility] [place] Diskectomy [id number] 10/07/2001 [facility] Laminectomy [id number] [facility] [place]
--- OUTSIDE RECORDS SUMMARY | 2019-02-22 05:56 | XMS REPORT | Summary of Care ---
Author Organization Unknown Address Unknown Phone Unavailable Encounter [facility](VIVIAN) [id number] Date(s): 07/24/14 - 07/25/14 [facility] [address] [place] Discharge Disposition: Home Physician Attending: Rafael Barragan MD Physician Admitting: Rafael Barragan MD Physician_Referring: Rafael Barragan MD Reason for Visit SBO Vital Signs 1 2 3 Most recent to oldest [Reference Range]: 177.8 cm (07/24/14 4:06 PM) Height 98.0 DegF (07/25/14 7:57 AM) 97.9 DegF (07/25/14 3:55 AM) 98.1 DegF (07/25/14 12:15 AM) Temperature Oral [96.4-99.1 DegF] 121 mmHg (07/25/14 7:57 AM) 116 mmHg (07/25/14 3:55 AM) 93 mmHg (07/25/14 12:15 AM) Systolic Blood Pressure [90-140 mmHg] 72 mmHg (07/25/14 7:57 AM) 71 mmHg (07/25/14 3:55 AM) 76 mmHg (07/25/14 12:15 AM) Diastolic Blood Pressure [60-90 mmHg] 16 BRMIN (07/25/14 3:55 AM) 16 BRMIN (07/25/14 12:15 AM) 16 BRMIN (07/24/14 8:30 PM) Respiratory Rate [14-20 BRMIN] 63 bpm (07/25/14 7:57 AM) 74 bpm (07/25/14 3:55 AM) 66 bpm (07/25/14 12:15 AM) Peripheral Pulse Rate [60-100 bpm] 90.909 kg (07/24/14 4:06 PM) Weight 28.76 m2 (07/24/14 4:06 PM) Body Mass Index Problem List Condition Effective Dates Status Health Status Informant Acute Resolved asthma(Confirmed) Adult Resolved hypothyroidism(Confi rmed) GERD Resolved (gastroesophageal reflux disease)(Confirmed) HTN Resolved (hypertension)(Confi rmed) Allergies, Adverse Reactions, Alerts Substance Reaction Severity Status Depo-Medrol Active Medications aspirin 81 mg, 1 tab, Route: PO, Drug form: CHEWTAB, Daily, Dosing Weight 90.909, kg, St art date: 07/26/14 9:00:00, Duration: 30 day, Stop date: 08/24/14 9:00:00 Notes: Take with food. Start Date: 07/26/14 Stop Date: 07/25/14 Status: Canceled aspirin 81 mg, Daily, 0 Refill(s) Start Date: 07/24/14 Status: Suspended atropine 0.5 mg, 5 mL, Route: IV, Drug form: INJ, ONCE, Dosing Weight 90.909, kg, PRN Bra dycardia, Start date: 07/24/14 20:21:00, symptomatic bradycardia with heart rate <44 Start Date: 07/24/14 Stop Date: 07/25/14 Status: Discontinued Cipro 500 mg, 10 mL, Route: NG, Drug form: SUSP, [id number], Dosing Weight 90.909, kg, St art date: 07/24/14 17:00:00, Duration: 30 day, Stop date: 08/23/14 5:00:00 Notes: Shake well - Take 1hr before or 2hr after antacids, dairy & minerals - On empty stomach - May interfere w/enteral feedings. Start Date: 07/24/14 Stop Date: 07/25/14 Status: Discontinued Dexilant 60 mg, Route: PO, Drug form: DRC, Daily, Dosing Weight 90.909, kg, Start date: 09/25/13 9:00:00, Duration: 30 day, Stop date: 08/24/14 9:00:00 Start Date: 07/26/14 Stop Date: 07/25/14 Status: Deleted Dexilant 60 mg oral delayed release capsule 60 mg=1 cap, Daily, 0 Refill(s) Start Date: 07/24/14 Status: Suspended dicyclomine 20 mg oral tablet 20 mg=1 tab, PO, QID, # 28 tab, 0 Refill(s) Start Date: 07/24/14 Stop Date: 07/31/14 Status: Suspended Flagyl 500 mg, 100 mL, Route: IVPB, Drug form: INJ, [id number], Dosing Weight 90.909, kg, S tart date: 07/24/14 17:00:00, Duration: 30 day, Stop date: 08/23/14 9:00:00 Notes: (Same as: Flagyl) Avoid alcohol. Start Date: 07/24/14 Stop Date: 07/25/14 Status: Discontinued influenza virus vaccine, inactivated 0.5 ml, Route: IM, Drug Form: SUSP, Daily, Start date: 07/25/14 9:00:00, Duratio n: 1 doses or times, Stop date: 07/25/14 9:00:00 Notes: (Same as: Fluzone Quadrivalent) Start Date: 07/25/14 Stop Date: 07/25/14 Status: Completed levothyroxine 0.15 mg, 1 tab, Route: PO, Drug form: TAB, [id number], Dosing Weight 90.909, kg, Sta rt date: 07/25/14 6:30:00, Duration: 30 day, Stop date: 08/23/14 6:30:00 Notes: Take 1 hour before or 2 hours after meal; Enteral feeds may interefere wi th the absorption of this medication. (Same as: Levothroid) Start Date: 07/25/14 Stop Date: 07/25/14 Status: Discontinued levothyroxine 0.15 mg, PO, Daily, 0 Refill(s) Start Date: 07/24/14 Status: Suspended losartan 50 mg, 1 tab, Route: PO, Drug form: TAB, Daily, Dosing Weight 90.909, kg, Start date: 07/25/14 9:00:00, Duration: 30 day, Stop date: 08/23/14 9:00:00 Notes: (Same as: Cozaar) Start Date: 07/25/14 Stop Date: 07/25/14 Status: Discontinued losartan 50 mg oral tablet 50 mg=1 tab, PO, Daily, # 30 tab, 0 Refill(s) Start Date: 07/24/14 Status: Suspended nitroglycerin 0.4 mg sublingual tablet 0.4 mg, 1 tab, Route: SL, Drug form: TAB, Q5Min, Dosing Weight 90.909, kg, PRN C hest Pain, Start date: 07/24/14 20:21:00, Duration: 30 day, Stop date: 08/23/14 20:20:00 Notes: (Same as:Nitroquick, Nitrostat)"Do Not Crush" Sublingual tablet Start Date: 07/24/14 Stop Date: 07/25/14 Status: Discontinued normal saline 0.9% IV 1,000 mL 1,000 mL, Rate: 75 ml/hr, Infuse over: 13.3 hr, Route: IV, Dosing Weight 90.909 kg, Total Volume: 1,000, Start date: 07/24/14 16:34:00, Duration: 30 day, Stop d ate: 08/23/14 16:33:00 Start Date: 07/24/14 Stop Date: 07/25/14 Status: Discontinued pneumococcal 23-valent vaccine 0.5 ml, Route: IM, Drug Form: INJ, Daily, Start date: 07/25/14 9:00:00, Duration : 1 doses or times, Stop date: 07/25/14 9:00:00 Notes: (Same as: Pneumovax 23) Refrigerate Start Date: 07/25/14 Stop Date: 07/25/14 Status: Completed Protonix 40 mg, 1 tab, Route: PO, Drug form: ECTAB, Before Dinner, Start date: 07/25/14 1 6:30:00, Duration: 30 day, Stop date: 08/23/14 16:30:00 Notes: Tablet should not be chewed or crushed.(Same as: Protonix) Start Date: 07/25/14 Stop Date: 07/25/14 Status: Canceled Singulair 10 mg, 1 tab, Route: PO, Drug form: TAB, Bedtime, Dosing Weight 90.909, kg, Star t date: 07/25/14 21:00:00, Duration: 30 day, Stop date: 08/23/14 21:00:00 Notes: (Same as:Singulair) Start Date: 07/25/14 Stop Date: 07/25/14 Status: Canceled Singulair 10 mg oral tablet 10 mg=1 tab, PO, Bedtime, # 30 tab, 0 Refill(s) Start Date: 07/24/14 Status: Suspended Xanax 1 mg oral tablet 1 mg=1 tab, PO, TID, Anxiety, 0 Refill(s) Start Date: 07/24/14 Status: Suspended Xanax 1 mg oral tablet 1 mg, 1 tab, Route: PO, Drug form: TAB, TID, Dosing Weight 90.909, kg, PRN as ne eded for anxiety, Start date: 07/25/14 11:09:00, Stop date: 08/24/14 11:08:00 Notes: With food or milk(Same as: Xanax) Start Date: 07/25/14 Stop Date: 07/25/14 Status: Discontinued Results ELECTROLYTES Most recent to 1 oldest [Reference Range]: Sodium Lvl [135-145 143 mEq/L mEq/L] (07/25/14 4:36 AM) Potassium Lvl 4.3 mEq/L [3.5-5.1 mEq/L] (07/25/14 4:36 AM) Chloride Lvl [95-109 109 mEq/L mEq/L] (07/25/14 4:36 AM) CO2 [24-32 mEq/L] 30 mEq/L (07/25/14 4:36 AM) AGAP [10.0-20.0 8.3 mEq/L mEq/L] *LOW* (07/25/14 4:36 AM) CHEM PANEL Most recent to 1 oldest [Reference Range]: Creatinine Lvl 1.0 mg/dL [0.5-1.4 mg/dL] (07/25/14 4:36 AM) eGFR 65 mL/min/1.73m2 1 *NA* (07/25/14 4:36 AM) BUN [7-22 mg/dL] 10 mg/dL (07/25/14 4:36 AM) Glucose Lvl [70-99 106 mg/dL 2 mg/dL] *HI* (07/25/14 4:36 AM) Calcium Lvl 8.2 mg/dL [8.5-10.5 mg/dL] *LOW* (07/25/14 4:36 AM) 1Result Comment: The eGFR is calculated using [...] from the National Kidney Disease Education Program ( NKDEP) which additionally recommends that when the eGFR is used in patients with extremes of body mass index for purposes of drug dosing, the eGFR should be mul tiplied by the estimated BMI. 2Interpretive Data: Adult reference range values reflect the clinical guidelines of the [employer]. CARDIAC ENZYMES Most recent to 1 oldest [Reference Range]: Troponin-I <0.02 ng/mL [0.00-0.40 ng/mL] (07/24/14 5:42 PM) HEMATOLOGY Most recent to 1 oldest [Reference Range]: WBC [3.7-10.4 K/CMM] 8.8 K/CMM (07/24/14 5:42 PM) RBC [4.20-5.40 4.13 M/CMM M/CMM] *LOW* (07/24/14 5:42 PM) Hgb [12.0-16.0 g/dL] 11.8 g/dL *LOW* (07/24/14 5:42 PM) Hct [36.0-48.0 %] 36.0 % (07/24/14 5:42 PM) MCV [80.0-98.0 fL] 87.2 fL (07/24/14 5:42 PM) MCH [27.0-31.0 pg] 28.5 pg (07/24/14 5:42 PM) MCHC [32.0-36.0 32.7 g/dL g/dL] (07/24/14 5:42 PM) RDW [11.5-14.5 %] 13.6 % (07/24/14 5:42 PM) Platelet [133-450 266 K/CMM K/CMM] (07/24/14 5:42 PM) MPV [7.4-10.4 fL] 7.3 fL *LOW* (07/24/14 5:42 PM) Medications Administered During Your Visit No data available for this section Immunizations Vaccine Date Refusal Reason influenza virus vaccine, inactivated 07/25/14 pneumococcal 23-valent vaccine 07/25/14 Procedures Procedure Type Body Site Date of Procedure Related Diagnosis Cholecystectomy 09/06/12 12:00 AM Diskectomy 10/07/01 12:00 AM Social History Social History Type Response Smoking Status Never smoker, Exposure to Tobacco Smoke None, Cigarette Smoking Last 365 Days No, Reg Smoking Cessation Counseling Yes
--- OUTSIDE RECORDS SUMMARY | 2019-02-22 05:56 | XMS REPORT | Summary of Care ---
Author Author [facility] [place] Organization [facility] [place] Address Unknown Phone Unavailable Encounter [facility](FIN) [id number] Date(s): 03/28/18 - 03/28/18 [facility] [place] [address] [place] [phone] Encounter Diagnosis Encounter for screening mammogram for malignant neoplasm of breast (Final) - 04/03/18 Discharge Disposition: Home or Self Care Attending Physician: Dylon Hummel MD Referring Physician: Dylon Hummel MD Vital Signs No data available for this section Problem List Condition Effective Dates Status Health Status Informant Acute Resolved asthma(Confirmed) Adult Resolved hypothyroidism(Confi rmed) GERD Resolved (gastroesophageal reflux disease)(Confirmed) HTN Resolved (hypertension)(Confi rmed) Obesity(Confirmed) Active Allergies, Adverse Reactions, Alerts Substance Reaction Severity Status Depo-Medrol Active Medications No data available for this section Results No data available for this section Immunizations Given and Recorded Vaccine Date Status Refusal Reason pneumococcal 23-valent vaccine 07/25/14 Given influenza virus vaccine, inactivated 07/25/14 Given Procedures Procedure Date Related Diagnosis Body Site Status Cholecystectomy 09/06/12 Completed Diskectomy 10/07/01 Completed Laminectomy Completed Social History Social History Type Response Smoking Status Current every day smoker; Type: Cigarettes; Exposure to Tobacco Smoke None; Lives with someone who smokes; Cigarette Smoking Last 365 Days Yes; Reg Smoking Cessation Counseling No entered on: 01/19/17 Assessment and Plan No data available for this section
--- OUTSIDE RECORDS SUMMARY | 2019-02-22 05:56 | XMS REPORT | Summary of Care ---
Author Author [facility] [place] Organization [facility] [place] Address Unknown Phone Unavailable Encounter ZHANG Cantu(FIN) [id number] Date(s): 09/13/16 - 09/13/16 [facility] [place] [address] [place] [phone] Discharge Disposition: Home or Self Care Attending Physician: Jodie Cotto MD Vital Signs No data available for [...] and Recorded Vaccine Date Status Refusal Reason influenza virus vaccine, inactivated 07/25/14 Given pneumococcal 23-valent vaccine 07/25/14 Given Procedures Procedure Date Related Diagnosis Body Site Cholecystectomy 09/06/12 Diskectomy 10/07/01 Social History Social History Type Response Smoking Status Never smoker; Exposure to Tobacco Smoke None; Cigarette Smoking Last 365 Days No; Reg Smoking Cessation Counseling Yes Assessment and Plan No data available for this section
--- OUTSIDE RECORDS SUMMARY | 2019-02-22 05:56 | XMS REPORT | Summary of Care ---
Author Author [facility] [place] Organization [facility] [place] Address Unknown Phone Unavailable Encounter ZHANG Cantu(FIN) [id number] Date(s): 03/28/18 - 03/28/18 [facility] [place] [address] [place] [phone] Discharge Disposition: Home or Self Care Attending [...]
[2019-02-22 09:51] VITALS: BP 104/66
--- NOTE | 2019-02-22 10:10 | Operative Report ---
DATE OF PROCEDURE: 02/22/2019 SURGEON: Pedro Kim MD PROCEDURE: Esophagogastroduodenoscopy with biopsies and a colonoscopy with polypectomy and biopsies. INDICATIONS FOR EGD: Acid reflux. INDICATIONS FOR COLONOSCOPY: Surveillance colonoscopy, personal history of colon polyps, intermittent diarrhea. MEDICATIONS: The patient was done under MAC, please see anesthesiologist's note. PROCEDURE IN DETAIL: With the patient in left lateral decubitus position, flexible fiberoptic Olympus gastroscope was introduced into the esophagus under direct visualization without any difficulty. There was some patchy nodularity noted in the esophagus and biopsies were obtained. Minute tongues of velvety red mucosa were noted to extend proximally from the GE junction and biopsies were obtained to rule out Kennedy's. The scope was then advanced with ease into the stomach traversing a small sliding hiatal hernia. Mucosa overlying the antrum and the body revealed some patchy erythema and low-grade to moderate edema and biopsies were obtained and sent to stain for H pylori. Several hyperplastic-appearing polyps were noted in the body, some were partially excised with a cold biopsy forceps. The pylorus was of normal contour and shape, it was intubated with ease and the scope was advanced all the way to the second portion of the duodenum. Biopsies were obtained from the proximal second portion and the duodenal bulb to rule out sprue. The scope was then withdrawn back into the stomach and retroflexed and mucosa overlying the fundus and the cardia appeared to be within normal limits. The scope was then straightened out, it was subsequently withdrawn. The patient tolerated procedure well. IMPRESSION: 1. Scattered nodularity in the esophagus, biopsies obtained. 2. Rule out Kennedy's esophagus. 3. Small sliding hiatal hernia. 4. Gastritis, biopsied, biopsies sent to stain for H pylori. 5. Gastric polyps, body, hyperplastic appearing, some partially excised with the cold biopsy forceps. 6. Rule out sprue. PLAN: Follow up histology. Continue Dexilant 60 mg one p.o. q.a.m. a.c. PROCEDURE IN DETAIL: The patient was then turned around. After adequate lubrication of the anal canal, flexible fiberoptic Olympus colonoscope was inserted into the rectum with ease and advanced all the way to the cecum. Mucosa overlying the cecum appeared to be within normal limits. The ileocecal valve was intubated and the scope was advanced into the terminal ileum. Biopsies were obtained. The scope was then withdrawn back into the colon. It was then withdrawn slowly and mucosa overlying the ascending colon appeared to be within normal limits. One polyp was snared and site was hemoclipped from the transverse colon. Mucosa overlying the left colon revealed some patchy mild inflammatory changes and multiple random biopsies were obtained. Two polyps were hot biopsied from the rectum. The scope was then retroflexed into the distal rectum. The area around the dentate line appeared to be within normal limits. The scope was then straightened out, it was subsequently withdrawn. The patient tolerated procedure well. IMPRESSION: 1. Transverse colon polyp snared, site hemoclipped. 2. Mild patchy left-sided colitis. 3. Proctitis, mild. PLAN: Follow up histology. Follow up stool studies. Initiate Bentyl 20 mg one p.o. t.i.d. and VSL#3 one p.o. daily. The patient might need a followup colonoscopy in 3 to 5 years. Pedro Kim MD [facility] [place]/RUDY /[id number] cc: Dylon Hummel MD
[2019-02-22 11:41] LABS: WBC,FECAL (FECAL LACTOFERRIN) NEGATIVE (NEGATIVE)
[2019-02-22 14:53] LABS: C DIFFICILE TOXIN A&B AMP PROB NEGATIVE (NEGATIVE)
== END | disposition home or self-care (01) ==
LOC: OR 05:53
PROVIDERS: ATTEND Internal Medicine Gastroenterology
DX: K21.0 Gastro-esophageal reflux disease with esophagitis (principal); D12.3 Benign neoplasm of transverse colon; K31.7 Polyp of stomach and duodenum; K29.70 Gastritis, unspecified, without bleeding; K22.8 Other specified diseases of esophagus; K51.50 Left sided colitis without complications; K62.89 Other specified diseases of anus and rectum; K44.9 Diaphragmatic hernia without obstruction or gangrene; K59.00 Constipation, unspecified; D72.820 Lymphocytosis (symptomatic); I10 Essential (primary) hypertension; E03.9 Hypothyroidism, unspecified; G47.33 Obstructive sleep apnea (adult) (pediatric); E78.5 Hyperlipidemia, unspecified; Z88.8 Allergy status to other drugs, medicaments and biological substances; Z01.810 Encounter for preprocedural cardiovascular examination; Z79.02 Long term (current) use of antithrombotics/antiplatelets
CPT/HCPCS: 43239; 45380; 45384; 45385; 83630; 83993; 87045; 87177; 87328; 87493; 93005; J1610; J2001; J2250; J2704; J3010

== ENCOUNTER → 2023-07-08 | Day surgery (SDC) | payer OTHER ==
[~2023-07-08] MED LIST changes: +ATORVASTATIN CA20 MG PO; +DICYCLOMINE HCL20 MG PO; -GLUCAGON FOR INJ 1 MG VIAL ONE; +JANUMET XR 50-1 EAC1; +LACTATED RINGER'S 1,000 ML ONE; +LEVOTHYROXINE112 MCG PO; +LOSARTAN-HCTZ1 EAC2; +MELATONIN3 MG PO; +METOCLOPRAMIDE HCL 10 MG/2ML VIAL ONE; -MIDAZOLAM HCL 2 MG/2 ML VIAL ONE; +MONTELUKAST SOD10 MG PO; +OXYBUTYNIN CHLOR5 M1 PO; +PRISTIQ ER50 MG PO; +PROPOFOL IV EMULSION 10 MG/ML 20 ML VIAL ONE; +PROPOFOL IV EMULSION 10 MG/ML 50 ML VIAL IV ONE; -PROPOFOL IV EMULSION 10 MG/ML 50 ML VIAL ONE; +VITAMIN D31 ML
[2023-07-08 09:45] VITALS: TEMP 97.7
[2023-07-08 10:08] VITALS: BP 121/74; PULSE 60; RESP 18; O2SAT 97
[2023-07-12 09:13] LABS: ENDOMYSIAL ANTIBODIES, IGA Negative (Negative)
== END | disposition home or self-care (01) ==
LOC: OR 07:18
PROVIDERS: ATTEND Internal Medicine Gastroenterology
DX: K29.70 Gastritis, unspecified, without bleeding (principal); Z86.010 Personal history of colon polyps; K31.7 Polyp of stomach and duodenum; K52.9 Noninfective gastroenteritis and colitis, unspecified; K21.9 Gastro-esophageal reflux disease without esophagitis; K44.9 Diaphragmatic hernia without obstruction or gangrene; K62.89 Other specified diseases of anus and rectum; K64.8 Other hemorrhoids; Z71.3 Dietary counseling and surveillance; I10 Essential (primary) hypertension; E78.5 Hyperlipidemia, unspecified; I49.9 Cardiac arrhythmia, unspecified; E11.9 Type 2 diabetes mellitus without complications; E03.9 Hypothyroidism, unspecified; G89.29 Other chronic pain; M06.9 Rheumatoid arthritis, unspecified; F32.A Depression, unspecified; F17.210 Nicotine dependence, cigarettes, uncomplicated; Z71.6 Tobacco abuse counseling; Z88.8 Allergy status to other drugs, medicaments and biological substances; Z79.84 Long term (current) use of oral hypoglycemic drugs; Z79.899 Other long term (current) drug therapy; Z68.35 Body mass index [BMI] 35.0-35.9, adult
CPT/HCPCS: 36415; 43239; 43251; 45380; 82784; 82948; 83516; 83630; 83993; 86256; 87045; 87177; 87324; 87328; 87449; C9113; J2001; J2704 ×2; J2765; J3010; J7121; 45378

== ENCOUNTER → 2024-06-20 | Day surgery (SDC) | payer OTHER ==
[~2024-06-20] MED LIST changes: -LACTATED RINGER'S 1,000 ML ONE; +METFORMIN HCL500 MG PO; +ONDANSETRON ODT4 MG PO; +OZEMPIC0.25 MG/02 SQ; -PROPOFOL IV EMULSION 10 MG/ML 50 ML VIAL IV ONE; +SIMETHICONE 40 MG/0.6 ML BTL ONE
[2024-06-20] MEDS: LACTATED RINGER'S 1,000 ML ONE (05:38)
[2024-06-20 07:40] VITALS: TEMP 97.8
[2024-06-20 08:10] VITALS: BP 120/67; PULSE 60; RESP 16; O2SAT 99
== END | disposition home or self-care (01) ==
LOC: OR 06:16
PROVIDERS: ATTEND Internal Medicine Gastroenterology
DX: K31.7 Polyp of stomach and duodenum (principal); K20.90 Esophagitis, unspecified without bleeding; K44.9 Diaphragmatic hernia without obstruction or gangrene; K21.9 Gastro-esophageal reflux disease without esophagitis; K58.9 Irritable bowel syndrome, unspecified; E11.9 Type 2 diabetes mellitus without complications; I10 Essential (primary) hypertension; I49.9 Cardiac arrhythmia, unspecified; E03.9 Hypothyroidism, unspecified; E66.01 Morbid (severe) obesity due to excess calories; F32.A Depression, unspecified; F17.290 Nicotine dependence, other tobacco product, uncomplicated; Z88.8 Allergy status to other drugs, medicaments and biological substances; Z01.810 Encounter for preprocedural cardiovascular examination; Z79.84 Long term (current) use of oral hypoglycemic drugs; Z79.85 Long-term (current) use of injectable non-insulin antidiabetic drugs; Z79.899 Other long term (current) drug therapy
CPT/HCPCS: 43251; 93005; J2003; J2470; J2704; J2765; J3010; J7121; 43239

== ENCOUNTER 2024-10-07 17:35 | Emergency (ER) | payer OTHER ==
[~2024-10-07] VITALS: Ht 177.8 cm; Wt 103.9 kg
[2024-10-07 17:35] VITALS: PULSE 88; RESP 19; TEMP 97.8; O2SAT 98
[~2024-10-07 17:35] MED LIST changes: -FENTANYL CITRATE/PF 100MCG/2 ML INJ ONE; -LIDOCAINE HCL 2% LOCAL INJ 5 ML SDV VIAL INJ ONE; -METOCLOPRAMIDE HCL 10 MG/2ML VIAL ONE; -PROPOFOL IV EMULSION 10 MG/ML 20 ML VIAL ONE; -SIMETHICONE 40 MG/0.6 ML BTL ONE
== END 2024-10-07 19:45 | disposition home or self-care (01) ==
LOC: ER 18:06
DX: R05.9 Cough, unspecified (principal); J10.1 Influenza due to other identified influenza virus with other respiratory manifestations; I10 Essential (primary) hypertension; E03.9 Hypothyroidism, unspecified; K21.9 Gastro-esophageal reflux disease without esophagitis; F41.9 Anxiety disorder, unspecified; F32.A Depression, unspecified; M54.9 Dorsalgia, unspecified; G89.29 Other chronic pain
CPT/HCPCS: 99283